=== PATIENT | female | born 1935 | race African-American/Black ===

== ENCOUNTER 2019-12-03 13:47 | Inpatient (IN) | payer OTHER ==
[~2019-12-03] VITALS: Ht 167.6 cm; Wt 76.1 kg
[2019-12-03 13:48] VITALS: BP 133/58
[2019-12-03 14:12] LABS: ABSOLUTE NEUTROPHILS 6.1 thou/uL (1.4-8.2); BASOPHILS 2.1 % (0.0-2.0); HEMATOCRIT 28.1 % (37.0-47.0); HEMOGLOBIN 9.2 gm/dL (12.0-15.0); LYMPHOCYTES 26.2 % (24.0-44.0); MCH 29.3 pg (26.0-34.0); MCHC 32.8 g/dL (28.0-37.0); MCV 89.5 fL (80.0-100.0); MONOCYTES 4.4 % (1.0-8.0); PLATELET COUNT 403 thou/uL (150-400); POLYS 65.3 % (36.0-66.0); RBC 3.14 mil/uL (4.20-5.00); RDW 14.3 % (10.5-14.5); WBC 9.4 thou/uL (4.0-11.0)
[2019-12-03 14:22] LABS: ANION GAP 11 mmol/L (7-16); BUN 36 mg/dL (7-18); CHLORIDE 107 mmol/L (98-107); CO2 22 mmol/L (21-32); CREATININE 1.9 mg/dL (0.6-1.0); GLUCOSE 120 mg/dL (74-106); POTASSIUM 3.9 mmol/L (3.5-5.1); SODIUM 140 mmol/L (136-145)
[2019-12-03 14:27] LABS: PROTIME 10.5 Seconds (9.3-11.4)
--- NOTE | 2019-12-03 14:29 | EKG ---
[facility] [place] [address] ELECTROCARDIOGRAM REPORT Name: ERNST SINGH Room #: REG [facility]#: [id number] Admission: 12/03/19 Attend Phys: Discharge: Date of : 37 Report #: [id number] THIS REPORT FOR: cc: RANULFO - Rosibel family physician/PCP RANULFO - Rosibel family physician/PCP Dangelo Rosenbaum MD ~ THIS REPORT FOR: //name// [facility] ED Test Date: 2019-12-03 Test Time: 14:13:55 Pat Name: ERNST SINGH Department: Room: Gender: F [employer]: [facility] : 1935 Requested By: Janelle Pisano Order Number: [id number] MD: Dangelo Rosenbaum Measurements Intervals [place] Rate: 82 P: 67 [place]: 154 QRS: 10 QRSD: 82 T: 34 QT: 380 QTc: 444 Interpretive Statements Sinus rhythm No previous ECG available for comparison Electronically Signed On 12-03-2019 14:28:21 CDT by Dangelo Rosenbaum [email or web address] <ELECTRONICALLY SIGNED> By: Dangelo Rosenbaum MD 12/03/19 1428 1413 12 Dangelo Rosenbaum MD /ODILIA
[2019-12-03 14:32] LABS: ALBUMIN 2.2 g/dL (3.4-5.0); SGOT 26 U/L (15-37); SGPT 17 U/L (30-65); TOTAL BILIRUBIN 0.2 mg/dL (<0.1-1.0); TOTAL PROTEIN 6.2 g/dL (6.4-8.2); TROPONIN-I <0.06 ng/mL (<0.06)
[2019-12-03 15:04] LABS: URINE BILIRUBIN NEGATIVE (Negative); URINE BLOOD 3+ (Negative); URINE CLARITY CLEAR; URINE COLOR YELLOW; URINE GLUCOSE-RANDOM* NEGATIVE (Negative); URINE KETONES NEGATIVE (Negative); URINE LEUKOCYTES-REFLEX NEGATIVE (Negative); URINE NITRITE-REFLEX NEGATIVE (Negative); URINE PROTEIN (DIPSTICK) 3+ (Negative); URINE SPECIFIC GRAVITY >= 1.030 (1.005-1.035); URINE UROBILINOGEN 0.2 E.U./dl (0.2-1.0)
[2019-12-03 15:28] LABS: SQUAMOUS 0-3 Few /LPF (0-3); URINE WBC-REFLEX 6-15 Few /HPF (0-5)
[2019-12-03 15:29] LABS: BACTERIA-REFLEX 1-9 Few /HPF (None Seen); CASTS None Seen /LPF (None Seen); CRYSTALS None Seen /LPF (None Seen); URINE RBC 3-10 Few /HPF (0-2)
[2019-12-03 19:12] LABS: HEMATOCRIT 25.8 % (37.0-47.0); HEMOGLOBIN 8.5 gm/dL (12.0-15.0)
--- NOTE | 2019-12-03 20:19 | NUR ---
PLEASE CONTACT PATIENTS DAUGHTER FOR COLONOSCOPY AT [phone].
[2019-12-03 21:40] VITALS: BP 124/52
[2019-12-03 22:19] VITALS: BP 124/52
[2019-12-03 22:33] VITALS: BP 115/52
[2019-12-03] MEDS ORDERED: AMLODIPINE BESY10 MG PO (23:36)
[2019-12-03] MEDS ORDERED: MELOXICAM15 MG PO (23:36)
[2019-12-03] MEDS ORDERED: ASA81BEC PO (23:37)
[2019-12-03] MEDS ORDERED: SIMVASTATIN80 MG PO (23:37)
[2019-12-04] VITALS (19 sets, daily range): BP systolic 100–134; BP diastolic 36–57
[2019-12-04 02:34] LABS: HEMOGLOBIN 8.9 gm/dL (12.0-15.0); MCH 28.8 pg (26.0-34.0); MCHC 31.8 g/dL (28.0-37.0); MCV 90.6 fL (80.0-100.0); RBC 3.1 mil/uL (4.20-5.00); RDW 14.2 % (10.5-14.5); WBC 10.5 thou/uL (4.0-11.0)
[2019-12-04 03:00] LABS: CALCIUM 8.7 mg/dL (8.5-10.1); CREATININE 1.8 mg/dL (0.6-1.0); POTASSIUM 4.5 mmol/L (3.5-5.1)
--- NOTE | 2019-12-04 04:57 | NUR ---
PT WAS AN ER ADMIT. PT PRESENTED TO THE ER WITH LOWER GI BLEED. NO ACTIVE BLEEDING NOTED UPON ARRIVAL TO THE FLOOR. PT IS STABLE. H&H STABLE. PT PRESENTS TO THE FLOOR ALERT AND ORIENTED. NO SIGN OF DISTRESS NOTED IN PT. VITAL SIGNS STABLE. ADMISSION ASSESSMENT AND EDUCATION COMPLETED. CONSENTS SIGNED. SCHEDULED MEDS ADMINISTERED, BOWEL PREP DONE. PT IS NPO FOR AN EGD AND COLONOSCOPY. VERBALIZES UNDERSANDING. DENIES ANY PAIN, SOA. CONTINUE TO MONITOR PT. DENIES ANY FURTHER NEEDS AT THIS TIME.
[2019-12-04 09:57] LABS: HEMATOCRIT 19.8 % (37.0-47.0); HEMOGLOBIN 6.4 gm/dL (12.0-15.0)
--- NOTE | 2019-12-04 14:10 | NUR ---
Attempted to call patient but not in room. patient admits with GI bleeding. Son requested casemgt call him. Bob Adler Page [phone]. He reports his mom mentioned having him as DPOA. she has not completed form. Reviewed AD and booklet. Son wants to be notified if patient completes. Son reports [employer] patient resides with his brother. She does not use any assistive device. At [place] son interested in patient rec a walker and care. He reports any support she can rec will be beneficial. Bob Adler lives in [place] he reports he is the youngest of 9 children but patient goes to him for consents. Updated rn regarding advance directive and enlisting spiritual care assistance.
--- NOTE | 2019-12-04 16:57 | NUR ---
ASSESSMENT CHARTED. PT ALERT AND ORIENTED. HAD NUMEROUS EPISODE OF GI BLEED THIS AM. CRITICAL HGB 6.[address] ORTIZ. ORDERS GIVEN TO TRANSFUSE 2 UNIT OF BLOOD. EGD/COLOSCOPY AND NUC MED GI BLEED SCAN DONE THIS AM. PT HAD [address] COIL [address]ACED IN IR. SEE DR. MURRIETA NOTES. PT IS RECEIVING ONE UNIT OF BLOOD AT THIS TIME. WILL CONTINUE TO MONITOR.
[2019-12-04 23:37] LABS: HEMATOCRIT 24.5 % (37.0-47.0)
[2019-12-05] VITALS (7 sets, daily range): BP systolic 125–141; BP diastolic 53–70
--- NOTE | 2019-12-05 06:38 | NUR ---
Completed 2nd unit of blood without any reaction. No bleeding noted. Up with assist to bathroom x1. Pt. stated she's feeling much better and not weak anymore. Bed alarm on for safety. Making progress towards care plan goals.
--- NOTE | 2019-12-05 08:27 | P ---
[facility] [place] [address] PROCEDURE REPORT Name: ERNST SINGH Room #: 215-P ADM IN M.R.#: [id number] Admission: 12/03/19 Attend Phys: Federico Amanda MD Discharge: Date of : 37 Report #: [id number] THIS REPORT FOR: cc: FAM - No family physician/PCP RANULFO - No family physician/PCP Alex Gomez MD ~ CC: Federico Amanda [facility] physician/PCP Brendon Jackson MD BRIEF HISTORY: The patient is an 84-year-old woman who presented to [facility] last evening with sudden onset of rectal bleeding. Colonoscopy was just completed. She had red blood throughout the entire colon and a large amount of clot and liquidy red blood in the cecum. I could not deeply intubate the ileum and I could not rule out an upper GI bleed. She has an elevated creatinine and also an elevated BUN of about 38. Therefore, upper endoscopy was added on urgently as we could not exclude a possible upper GI source and the patient appears to be bleeding at this time. PREOPERATIVE DIAGNOSIS: Gastrointestinal bleeding, uncertain origin. POSTOPERATIVE DIAGNOSIS: Small hiatus hernia. MEDICATIONS: Deep sedation with propofol per Anesthesia. SPECIMEN: Biopsies of gastritis, rule out Helicobacter pylori. ESTIMATED BLOOD LOSS: 3 mL. PROCEDURE: EGD with biopsy. FINDINGS: We added on the upper endoscopy urgently because there appears to be evidence of ongoing bleeding and the source was not clearly elucidated on the colonoscopy; therefore, we made the decision to proceed with upper endoscopy. DESCRIPTION OF PROCEDURE: With the patient in left lateral decubitus position, the Olympus video endoscope was inserted in cervical esophagus under direct vision without difficulty. Examination of this organ through its entire length revealed normal esophageal mucosa down the squamocolumnar junction. Squamocolumnar junction was inspected and noted to be unremarkable. There was a small, less than 2 cm hiatus hernia identified. There was no evidence of bleeding in the hernia. The scope was advanced into the stomach which was examined on end view as well as retroflexed views. The mucosa was normal. There was no evidence of ulcers or erosions. A bleeding site was not identified within the stomach. The pylorus was unremarkable. Duodenal bulb was inspected and noted to be unremarkable. The scope was advanced down just beyond the ligament of Treitz in the proximal jejunum. At that point, the scope was slowly [facility] [address] [place] [address] PROCEDURE REPORT Name: SAMANTHAERNST Room #: 215-P [facility] IN M.R.#: [id number] Admission: 12/03/19 Attend Phys: Federico Amanda MD Discharge: Date of : 37 Report #: [id number] withdrawn and careful circumferential views were obtained. The mucosa of the small bowel as well as we could examine was normal. There was no evidence of ulcers, erosions, and there was no stigmata of bleeding. AVMs were not seen. A bleeding site was not identified. The duodenal bulb was unremarkable. Scope was withdrawn back in the stomach which was examined again and once again there was no evidence of bleeding lesions or bleeding in the stomach. Upon retroflexion, no mass lesions were seen. The hiatus hernia was seen without evidence of bleeding. Gastric mucosal biopsies were obtained to evaluate for H. pylori. Scope was withdrawn. The patient tolerated the procedure well. DISPOSITION: The patient with ongoing GI bleeding. The etiology is not entirely certain. Since she does have an elevated creatinine, we will proceed with bleeding scan, which will hopefully elucidate the area of bleeding. <ELECTRONICALLY SIGNED> By: Alex Gomez MD 12/05/19 0827 0905 0916 Aelx Gomez MD /nt
--- NOTE | 2019-12-05 08:27 | HC ---
[facility] [address] [address] [place] [address] CONSULTATION Name: ERNST SINGH Room #: 215-P ADM IN M.R.#: [id number] Admission: 12/03/19 Attend Phys: Federico Amanda MD Discharge: Date of : 36 Report #: [id number] THIS REPORT FOR: cc: RANULFO - No family physician/PCP RANULFO - No family physician/PCP Alex Gomez MD ~ CC: Federico [place] physician/PCP REASON FOR CONSULTATION: The patient is an 84-year-old woman who presented to the Emergency Room at [facility] with rectal bleeding. HISTORY OF PRESENT ILLNESS: This patient had gone shopping today and when they were walking out of the store; her daughter commented there was something on her pants. She felt behind her and looked at her hand and saw that there was blood on her hand. She reported that the blood was fairly red in color. She had a movement into her pants of which she was unaware. The patient does report just prior to that she had sat down because she felt a little dizzy. However, there was no chest pain, shortness of breath or loss of consciousness. She presented here to the Emergency Room at [facility], where she was seen and evaluated. The patient has not had any bleeding problems before. There has been no abdominal pain. She has not had any nausea, vomiting, hematemesis. She has not had bloody stools in past. She does take a baby aspirin daily, but otherwise does not use alcohol or nonsteroidal products. PAST MEDICAL HISTORY: The patient reports high blood pressure. She has generally been in good health. CURRENT MEDICATIONS: She takes a baby aspirin. She takes a blood pressure medicine and she does not know the name of that medication. She also takes another medication of which she is not aware of. PAST SURGICAL HISTORY: None. FAMILY HISTORY: No family history of colon cancer, ulcer disease, liver disease or GI bleeding. SOCIAL HISTORY: She is . She has never smoked. She does not consume alcohol. REVIEW OF SYSTEMS: GENERAL: No change in weight, fever or chills. CENTRAL NERVOUS SYSTEM: No focal weakness, numbness, loss of consciousness, seizure, strokes. ENT: No change in vision, hearing, or sores in the mouth. [address] [address] CONSULTATION Name: ERNST SINGH Room #: 215-P [facility] IN M.R.#: [id number] Admission: 12/03/19 Attend Phys: Federico Amanda MD Discharge: Date of : 37 Report #: [id number] PULMONARY: No cough, pneumonia, or tuberculosis. CARDIOVASCULAR: No chest pain, chest tightness or palpitations. GASTROINTESTINAL: No previous GI issues such as GI bleeding, abdominal pain. She has never had a colonoscopy. GENITOURINARY: Without dysuria, pyuria, kidney stones, contracture or infections. GYNECOLOGIC: No breast problems, vaginal discharges or bleeding. 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 SKIN: Without rash. PSYCHIATRIC: No depression, anxiety or bipolar illness. ENDOCRINE: She is not aware of thyroid, diabetes or hormonal problems. HEMATOLOGIC: No previous bleeding, bruising or malignancies. PHYSICAL EXAMINATION: GENERAL: Well-developed, well-nourished, pleasant woman who is awake, alert and oriented, in no acute distress. VITAL SIGNS: Blood pressure ____/58, pulse of 89. HEENT: Anicteric. Pupils equal, round. Oropharynx clear. NECK: Supple, without thyromegaly. CHEST: Clear. HEART: Regular rate and rhythm, normal S1, S2. ABDOMEN: Normal bowel sounds, soft, nontender, without hepatosplenomegaly or masses. RECTAL: Not done. EXTREMITIES: Without cyanosis, clubbing or edema. NEUROLOGICAL: Oriented to person, place, and time. Moves all 4 extremities well. SKIN: Without rashes. CT scan of the abdomen and pelvis: There was noted to be fairly extensive evidence of diverticulosis without evidence of diverticulitis. LABORATORY DATA: Electrolytes unremarkable. BUN of 36, creatinine of 1.9. Albumin of 2.2, total protein 6.2. Liver function studies are normal. Lactic acid is normal. ASSESSMENT: 1. Rectal bleeding. 2. Orthostatic complaints, dizziness. 3. Kidney insufficiency, at least part chronic in nature as the patient was told by her physician that she had some minor kidney problems. 4. Degenerative joint disease. COMMENT: The patient with new-onset rectal bleeding. She has not had any previous lower GI evaluation. CT does reveal extensive diverticular disease. At this point, I would suspect a diverticular bleed. Her BUN is elevated, but [facility] [address] [place] [address] CONSULTATION Name: ERNST SINGH Room #: 215-P ADM IN M.R.#: [id number] Admission: 12/03/19 Attend Phys: Federico Amanda MD Discharge: Date of : 37 Report #: [id number] that may be related to chronic kidney disease per se. If upper endoscopy is nonrevealing, consider EGD as well for further evaluation. We will tentatively plan for tomorrow. <ELECTRONICALLY SIGNED> By: Alex Gomez MD 12/05/19 0827 1618 1713 Alex Gomez MD /nt
--- NOTE | 2019-12-05 08:27 | P ---
[facility] [place] [address] PROCEDURE REPORT Name: ERNST SINGH Room #: 215-P [facility] IN M.R.#: [id number] Admission: 12/03/19 Attend Phys: Federico Amanda MD Discharge: Date of : 36 Report #: [id number] THIS REPORT FOR: cc: FAM - No family physician/PCP FAM - No family physician/PCP Alex Gomez MD ~ CC: Federico Amanda [facility] physician/PCP HIRAL GUZMAN COLONOSCOPY REPORT PREOPERATIVE DIAGNOSIS: Gastrointestinal bleeding. POSTOPERATIVE DIAGNOSES: 1. Proximal colon polyps x 2. 2. Moderately severe diverticulosis coli, small amount of proximal colon, much more severe in the left colon. 3. Small nonbleeding internal hemorrhoids. MEDICATIONS: Deep sedation with propofol per anesthesia. SPECIMENS: Colon polyps x 2, hepatic flexure. ESTIMATED BLOOD LOSS: 3 mL related to procedure. PROCEDURE: Incomplete colonoscopy to proximal ascending colon with snare polypectomy. FINDINGS: Prior to propofol sedation, the procedure of colonoscopy was discussed with the patient as well as potential risks, benefits and complications. She indicates she understands and desires to proceed. DESCRIPTION OF PROCEDURE: With the patient in left lateral decubitus position, digital examination was completed, which revealed thin red blood, which was a mixture of prep solution and blood. I cannot appreciate any masses at the level of the anal verge. Subsequently, the Olympus video colonoscope was introduced in the rectum, advanced under direct vision to the proximal colon. As we advanced the scope, we encountered multiple pools of red blood and there were a large organized clot within multiple pools. Unfortunately, because of all the clot material, we could not suction or aspirate all of this liquidy material away. The clot kept clogging the scope in spite of flushing efforts. However, we were able to advance the scope through the colon and into the proximal colon. The cecum was identified. Unfortunately, was filled with blood and we could not actually safely entered the cecum because there was a large amount of red blood and organizing clot. The cecum was identified by the yellow fat of the ileocecal valve. The mouth was seen. I could place the tip of the scope in the [facility] [address] [place] [address] PROCEDURE REPORT Name: ERNST SINGH Room #: 215-P [facility] IN M.R.#: [id number] Admission: 12/03/19 Attend Phys: Federico Amanda MD Discharge: Date of : 37 Report #: [id number] mouth, but due to angulation and looping, I could not deeply intubate the ileum. On the mouth, there was some red blood. I could see a villous pattern, but literally this was the level of the mouth of the ileocecal valve and I could not be sure whether or not the blood was coming from above the ileocecal valve. Multiple attempts failed. At that point, the scope was slowly withdrawn and careful circumferential views were obtained. Again, we could not visualize the cecum because we could not clear the clot and blood. We could not see the appendiceal orifice and thus the exam was not complete. As we withdrew the scope, we irrigated the areas as well as possible. I did not see any diverticular disease in the ascending colon. In the hepatic flexure, there were 2 sessile polyps that had a hyperplastic appearance, but these may be serrated adenomas and they were removed by snare polypectomy. The largest was about 6 mm or so, the other was slightly smaller. There was good hemostasis. As we withdrew the scope through the transverse colon, the distal transverse colon, we saw a few nonbleeding diverticula. The scope was withdrawn through the left colon. Again, there were multiple pools of red blood with large organized clots. Again, we could not suction all this material. We could not see all the mucosa. Clearly, there was extensive diverticular disease and we irrigated those as well as possible and bleeding could not be identified from those diverticula. This was a similar pattern throughout the entire left colon. Some areas were visualized very well, others are not so well. The scope was withdrawn in the rectum and there was a large pool of clot and liquidy red blood. With maneuvering the scope, we were able to splint the anus open and a large amount of clot and blood exuded across the anus and out. This improved visualization of the rectum, but we could not remove all this material. With the limitations of the blood clot, the mucosa appeared normal. There were small hemorrhoids and no obvious bleeding was seen. Scope was withdrawn. The patient tolerated the procedure well. DISPOSITION: Unfortunately, a clear-cut site of bleeding could not be identified. She does have diverticular disease. Due to large pools of blood, I cannot exclude the possibly neoplasms are still present. The cecum could not be visualized because of inadequate prep and thus a complete exam was not obtained. We will follow up on the path of the polyps removed. We will go ahead and proceed with upper endoscopy since I cannot exclude an upper GI source as I could not enter the ileum satisfactorily. <ELECTRONICALLY SIGNED> By: Alex Gomez MD 12/05/19 0827 0850 1029 Alex Gomez MD /nt
[2019-12-05 08:49] LABS: HEMATOCRIT 24.4 % (37.0-47.0)
--- NOTE | 2019-12-05 12:27 | NUR ---
patient to discharge home with no needs from caset. Spiritual care and RN assisted patient with advance directive and sp with son. no further needs.
--- NOTE | 2019-12-05 12:39 | NUR ---
CONSULT [phone] REGARDING A DPOA FOR HEALTHCARE WAS COMPLETED BY THIS COMPOSITION ROOFER. TODAY, PATIENT WAS ABLE TO HAVE VISITORS. THIS COMPOSITION ROOFER VISITED AND CONFIRMED THE DESIRES OF Pt. AT APPROXIMATELY 1115 HOURS. THIS COMPOSITION ROOFER RETURNED WITH DPOA PAPERWORK AND SON WAS ON TELEPHOINE. PAPERWORK WAS SIGNED AND NOTARIZED. NURSE WAS ONE WITNESS AND REQUESTED TO FINISH UP PROCESS AND RETURN ORIGINAL TO THE PATIENT.
[2019-12-05 14:10] LABS: HEMATOCRIT 23.3 % (37.0-47.0); HEMOGLOBIN 7.7 gm/dL (12.0-15.0)
[2019-12-05] MEDS ORDERED: KEFLEX500 M1 PO (15:21)
[2019-12-05 17:21] LABS: HEMATOCRIT 26.6 % (37.0-47.0); HEMOGLOBIN 8.9 gm/dL (12.0-15.0)
--- NOTE | 2019-12-05 18:18 | NUR ---
PATIENT AOX4. SHOWED NO S/S OF BLEED THIS SHIFT. PATIENT RECEIVED DOSE OF IV ANTIBIOTICS PER ORDERS. PATIENT ORDERED TO DISCHARGE HOME. IV REMOVED, PATIENT DRESSED, AND DISCHARGE PACKET COMPLETED. PATIENT HAD BLOODY BOWEL MOVEMENT PRIOR TO COMPLETE DISCHARGE. HOSPITALIST AND GI NOTIFIED. PATIENT VITALS STABLE, SHOWS NO S/S OF DISTRESS. H&H REPEATED PER ORDERS. PATIENT ALLOWED NO IV AT THIS TIME PER PROVIDER ORDERS. PATIENT TO REMAIN INPATIENT STATUS OVERNIGHT AND CONTINUE TO MONITOR. UP WITH STEADY BALANCED GAIT. INSTRUCTED TO CALL FOR ASSIST IF SYMPTOMS CHANGE. PATIENT AGREEABLE TO STAYING AND CONTINUED MONITORING.
[2019-12-06] VITALS (7 sets, daily range): BP systolic 109–128; BP diastolic 45–56
--- NOTE | 2019-12-06 05:05 | NUR ---
Pt. slept well during the night. Up ad keila in room with steady gait. No bloody stools during the night. Making progress towards care plan goals.
[2019-12-06 05:17] LABS: HEMATOCRIT 20.1 % (37.0-47.0)
[2019-12-06 05:57] LABS: HEMOGLOBIN 6.7 gm/dL (12.0-15.0)
--- NOTE | 2019-12-06 07:24 | NUR ---
Hgb result reported to NASREEN Milan. Obtained an order to transfuse one unit PRBC. Report given to leobardo LEZAMA.
--- NOTE | 2019-12-06 10:55 | NUR ---
PT ALERT AND ORIENTED TIMES FOUR. VSS. BLOOD STARTED THIS MORNING ONE UNIT TO BE GIVEN. PT DENEIS PAIN/SOA. PT TOLERATES MEDS AND MEALS. PT UP TO RESTROOM AB RIKI WITHOUT ISSUES. WILL CONTINUE TO MONITOR.
--- NOTE | 2019-12-06 15:08 | PATH ---
[facility] [place] [address] PATHOLOGY RPT PROCEDURE Name: OCTAVIO COLLADO Room #: 215-P ADM IN M.R.#: [id number] Admission: 12/03/19 Date of : 37 Discharge: Report #: [id number] Path Case #: [id number] [facility] Accession Number: [id number] . 01 Material submitted: . PART A: hepatic flexure - POLYP X2 AT HEPATIC FLEXURE PART B: stomach - GASTRIC BIOPSY R/O H. PYLORI . 01 Clinical history: . . Colon polyps, diverticulitis, small hiatus hernia Lower GI bleed . 02 Diagnosis: A. Large bowel "polyp x 2 at hepatic flexure", endoscopic biopsy: - Large bowel mucosa with prominent intramucosal lymphoid aggregates, overall intact crypt architecture, and a single focus of cryptitis. - Negative for dysplasia and malignancy. - Please see comment. . B. Stomach "gastric biopsy", endoscopic biopsy: - Gastric body mucosa with marked chronic active gastritis and focal intestinal metaplasia; negative for dysplasia and malignancy. - POSITIVE FOR HELICOBACTER PYLORI ORGANISMS BY IMMUNOHISTOCHEMICAL STAINING TECHNIQUES. (FERNANDEZ/porfirio; 12/05/2019) LBQ 12/06/2019 1338 Local . 02 Comment: The two polyps from the hepatic flexure consist of architecurally intact large bowel mucosa with prominent intra-mucosal lymphoid aggregates. In one piece of tissue there is an isolated focus of cryptitis and glandular dropout. Due to the localized nature of the inflammation, the clinical signficance is unclear. Please correlate clinically. . 02 Electronically signed: . Maximo Cotto MD, Pathologist NPI- [id number] . 01 Gross description: . A. The specimen is received in formalin labeled "Octavio Collado, polyp *2 at hepatic flexure" and consists of multiple fragments of pink-singh tissue measuring 1.2 x 0.7 x 0.3 cm in aggregate and are entirely submitted in A1. . B. The specimen is received in formalin labeled "Octavio Collado, gastric BX R/O H. pylori" and consists of multiple fragments of pink-singh tissue [address] [address] PATHOLOGY RPT PROCEDURE Name: OCTAVIO COLLADO Room #: 215-P ADM IN M.R.#: [id number] Admission: 12/03/19 Date of : 37 Discharge: Report #: [id number] Path Case #: [id number] measuring 1.2 x 0.4 x 0.2 cm in aggregate and are entirely submitted in B1. ([facility]; 12/04/2019) JFQ/JFQ 12/04/2019 1546 Local . 02 Microscopic: . Immunohistochemical stain results (block B1) Helicobacter pylori - Positive for javier-shaped organisms. . 02 Pathologist provided ICD-10: K29.50, B96.81, K92.2 . 02 CPT . 674119, 836667, R21660 Specimen Comment: A courtesy copy of this report has been sent to [phone] Specimen Comment: Report sent to / DR ORTIZ Performed at: 01 [facility] [address] [id number] MD Miguel Angel Gonzalez MD Phone: [phone] Performed at: 02 [facility] [address] [id number] MD Santiago Hill MD Phone: [phone]
[2019-12-06 16:56] LABS: HEMOGLOBIN 8.7 gm/dL (12.0-15.0)
[2019-12-07 04:36] VITALS: BP 115/49; BP 155/49
[2019-12-07 05:00] LABS: CALCIUM 8.1 mg/dL (8.5-10.1); CREATININE 1.5 mg/dL (0.6-1.0); POTASSIUM 4.4 mmol/L (3.5-5.1)
--- NOTE | 2019-12-07 05:17 | NUR ---
ASSUME CARE 1900. PT/VITALS STABLE. DENIES ANY FURTHER BLEEDING OR PAIN. UP AD RIKI. NO DISTRESS NOTED/SR ON MONITOR. ASSESSMENT CHARTED. PROGRESSING WELL WITH POC. PLAN IS POSSIBLE DISCHARGE TODAY IF HGB IS STABLE. WILL CONTINUE TO MONITOR AND FOLLOW WITH POC
[2019-12-07 05:24] LABS: HEMATOCRIT 25.1 % (37.0-47.0); HEMOGLOBIN 8.6 gm/dL (12.0-15.0)
[2019-12-07 07:30] VITALS: BP 127/48
[2019-12-07 12:27] VITALS: BP 102/83
[2019-12-07 12:59] LABS: HEMATOCRIT 29.4 % (37.0-47.0); HEMOGLOBIN 9.8 gm/dL (12.0-15.0)
[2019-12-07] MEDS ORDERED: AMLODIPINE BESY10 MG PO (12:59)
[2019-12-07] MEDS ORDERED: AMOXICILLIN 50500 M1 PO (12:59)
[2019-12-07] MEDS ORDERED: CLARITHROMYCIN250 M2 PO (12:59)
[2019-12-07] MEDS ORDERED: PROTONIX40 M1 PO (12:59)
--- NOTE | 2019-12-07 13:03 | NUR ---
ASSESSMENT CHARTED. PT ALERT AND ORIENTED. VSS. DENIED HAVING PAIN OR DISCOMFORT. SEEN BY DR. CLAYTON. ORDERS GIVEN TO DISCHARGE PT TO HOME. DISCHARGE INSTRUCTIONS GIVEN TO PT. PT VERBERLISED UNDERSTANDING.
== END 2019-12-07 13:42 | disposition home or self-care (01) | DRG 356 ==
LOC: ER 13:47 → 2N 15:28 → EROBS 15:28 → 2N 22:15
PROVIDERS: Emergency Medicine Emergency Medical Services; Internal Medicine; Nurse Practitioner; Specialist; ADMIT Hospitalist
PROC: 0DBK8ZX Excision of Ascending Colon, Via Natural or Artificial Opening Endoscopic, Diagnostic (ICD-10-PCS; principal; 2019-12-03)
PROC: 0DB68ZX Excision of Stomach, Via Natural or Artificial Opening Endoscopic, Diagnostic (ICD-10-PCS; principal; 2019-12-03)
PROC: B41J1ZZ Fluoroscopy of Other Lower Arteries using Low Osmolar Contrast (ICD-10-PCS; 2019-12-04)
PROC: B414YZZ Fluoroscopy of Superior Mesenteric Artery using Other Contrast (ICD-10-PCS; 2019-12-04)
PROC: B41D1ZZ Fluoroscopy of Aorta and Bilateral Lower Extremity Arteries using Low Osmolar Contrast (ICD-10-PCS; 2019-12-04)
PROC: 04L53DZ Occlusion of Superior Mesenteric Artery with Intraluminal Device, Percutaneous Approach (ICD-10-PCS; 2019-12-04)
PROC: B4151ZZ Fluoroscopy of Inferior Mesenteric Artery using Low Osmolar Contrast (ICD-10-PCS; 2019-12-04)
PROC: 4A023N7 Measurement of Cardiac Sampling and Pressure, Left Heart, Percutaneous Approach (ICD-10-PCS; 2019-12-05)
PROC: B2111ZZ Fluoroscopy of Multiple Coronary Arteries using Low Osmolar Contrast (ICD-10-PCS; 2019-12-05)
PROC: 027034Z Dilation of Coronary Artery, One Artery with Drug-eluting Intraluminal Device, Percutaneous Approach (ICD-10-PCS; 2019-12-05)
DX: K55.21 Angiodysplasia of colon with hemorrhage (principal); E43 Unspecified severe protein-calorie malnutrition; D62 Acute posthemorrhagic anemia; N17.9 Acute kidney failure, unspecified; N39.0 Urinary tract infection, site not specified; K57.91 Diverticulosis of intestine, part unspecified, without perforation or abscess with bleeding; M19.90 Unspecified osteoarthritis, unspecified site; K44.9 Diaphragmatic hernia without obstruction or gangrene; K64.8 Other hemorrhoids; E78.5 Hyperlipidemia, unspecified; D12.3 Benign neoplasm of transverse colon; K62.89 Other specified diseases of anus and rectum; N18.3 Chronic kidney disease, stage 3 (moderate); I12.9 Hypertensive chronic kidney disease with stage 1 through stage 4 chronic kidney disease, or unspecified chronic kidney disease; Z90.710 Acquired absence of both cervix and uterus; Z68.27 Body mass index [BMI] 27.0-27.9, adult; Z79.899 Other long term (current) drug therapy; Z79.2 Long term (current) use of antibiotics
CPT/HCPCS: 10081; 62110; 62900

== ENCOUNTER 2019-12-13 12:55 | Emergency (ER) | payer OTHER ==
[~2019-12-13] VITALS: Ht 167.6 cm; Wt 73.5 kg
[~2019-12-13 12:55] MED LIST: AMLODIPINE BESY10 MG PO; AMOXICILLIN 50500 M1 PO; ASA81BEC PO; CLARITHROMYCIN250 M2 PO; KEFLEX500 M1 PO; MELOXICAM15 MG PO; PROTONIX40 M1 PO; SIMVASTATIN80 MG PO
[2019-12-13] MEDS ORDERED: NORVASC10 MG PO (13:10)
[2019-12-13] MEDS ORDERED: HYDROCHLOROTHIA25 M2 PO (13:11)
[2019-12-13] MEDS ORDERED: CLARITHROMYCIN250 M2 PO (13:11)
[2019-12-13 14:48] LABS: URINE BILIRUBIN NEGATIVE (Negative); URINE BLOOD 3+ (Negative); URINE CLARITY CLEAR; URINE COLOR YELLOW; URINE GLUCOSE-RANDOM* NEGATIVE (Negative); URINE KETONES TRACE (Negative); URINE LEUKOCYTES-REFLEX NEGATIVE (Negative); URINE NITRITE-REFLEX NEGATIVE (Negative); URINE PROTEIN (DIPSTICK) 3+ (Negative); URINE SPECIFIC GRAVITY >= 1.030 (1.005-1.035); URINE UROBILINOGEN 0.2 E.U./dl (0.2-1.0)
[2019-12-13 14:57] LABS: BACTERIA-REFLEX 1-9 Few /HPF (None Seen); CASTS None Seen /LPF (None Seen); CRYSTALS None Seen /LPF (None Seen); SQUAMOUS None Seen /LPF (0-3); URINE RBC 3-10 Few /HPF (0-2); URINE WBC-REFLEX 0-5 Rare /HPF (0-5)
--- NOTE | 2019-12-13 15:07 | EKG ---
[facility] [place] [address] ELECTROCARDIOGRAM REPORT Name: ERNST SINGH Room #: REG [facility]#: [id number] Admission: 12/13/19 Attend Phys: Discharge: Date of : 37 Report #: [id number] THIS REPORT FOR: cc: FAM - No family physician/PCP FAM - No family physician/PCP Prashant Pop MD [facility] THIS REPORT FOR: //name// [facility] ED Test Date: 2019-12-13 Test Time: 14:44:14 Pat Name: ERNST SINGH Department: Room: Gender: F Ophthalmic Surgical Assistant: [facility] : 1935 Requested By: Alisson Abdullahi Order Number: [id number] MD: Prashant Pop Measurements Intervals [place] Rate: 82 P: 71 [place]: 151 QRS: 7 QRSD: 86 T: 48 QT: 380 QTc: 444 Interpretive Statements Sinus rhythm Atrial premature complex Compared to ECG 12/03/2019 14:13:55 Atrial premature complex(es) now present Electronically Signed On 12-13-2019 15:05:48 CDT by Prashant Pop [email or web address] <ELECTRONICALLY SIGNED> By: Prashant Pop MD, FACC 12/13/19 1500 1444 1444 Prashant Pop MD, [facility] /EPI
[2019-12-13 15:12] LABS: ABSOLUTE NEUTROPHILS 5.8 thou/uL (1.4-8.2); BASOPHILS 1.4 % (0.0-2.0); EOSINOPHILS 3.7 % (0.0-3.0); HEMATOCRIT 29.6 % (37.0-47.0); HEMOGLOBIN 9.9 gm/dL (12.0-15.0); LYMPHOCYTES 26.3 % (24.0-44.0); MCH 30.7 pg (26.0-34.0); MCHC 33.5 g/dL (28.0-37.0); MCV 91.7 fL (80.0-100.0); MONOCYTES 6.1 % (1.0-8.0); PLATELET COUNT 425 thou/uL (150-400); POLYS 62.5 % (36.0-66.0); RBC 3.23 mil/uL (4.20-5.00); RDW 14.3 % (10.5-14.5); WBC 9.4 thou/uL (4.0-11.0)
[2019-12-13 15:20] LABS: ANION GAP 7 mmol/L (7-16); BUN 30 mg/dL (7-18); CALCIUM 8.9 mg/dL (8.5-10.1); CHLORIDE 109 mmol/L (98-107); CO2 26 mmol/L (21-32); CREATININE 2.1 mg/dL (0.6-1.0); GLUCOSE 112 mg/dL (74-106); POTASSIUM 4.7 mmol/L (3.5-5.1); SODIUM 142 mmol/L (136-145)
[2019-12-13 15:30] LABS: ALBUMIN 2.4 g/dL (3.4-5.0); LIPASE 151 U/L (73-393); SGOT 39 U/L (15-37); SGPT 29 U/L (30-65); TOTAL BILIRUBIN 0.2 mg/dL (<0.1-1.0); TOTAL PROTEIN 6.5 g/dL (6.4-8.2); TROPONIN-I <0.06 ng/mL (<0.06)
[2019-12-13] MEDS ORDERED: CIPRO500 M1 PO (16:10)
[2019-12-13 16:19] VITALS: BP 138/54
== END 2019-12-13 16:21 | disposition home or self-care (01) ==
LOC: ER 12:55
PROVIDERS: Nurse Practitioner Family
DX: R10.9 Unspecified abdominal pain (principal); T36.0X5A Adverse effect of penicillins, initial encounter; T36.3X5A Adverse effect of macrolides, initial encounter; Y92.89 Other specified places as the place of occurrence of the external cause